=== PATIENT | female | born 1975 | race Caucasian/White ===

== ENCOUNTER 2016-05-19 10:28 | Inpatient (IN) ==
[2016-05-19] MEDS ORDERED: SOLU-MEDROL IV ONE (10:48)
[2016-05-19] MEDS ORDERED: DUONEB (A & A) INH ONE (10:48)
[2016-05-19] MEDS ORDERED: ROBITUSSIN-AC PO ONE (11:46)
--- NOTE | 2016-05-19 11:56 | Diag Imaging Result Document ---
PROCEDURE NAME: CHEST-2 VIEWS - 05/19/2016 FRONTAL AND LATERAL CHEST, TWO VIEWS: FINDINGS: The lungs are well expanded. The heart is not enlarged. The vessels are not distended. No pneumonia. No pleural effusions. IMPRESSION: No acute abnormality.
[2016-05-19 12:01] LABS: MANUAL DIFF NEEDED? NO
[2016-05-19 12:03] LABS: BE 0.7 mmoll (-3.0-3.0); BLOOD TYPE ARTERIAL; DRAW SITE R RADIAL; METHB 0.9 % (0.0-1.5); O2(CT) 18.8 mL/dL (15.0-23.0); PCO2(98.6) 36 mmHg (35-45); PO2(98.6) 65 mmHg (60-100); SAMPLE BLOOD; THB 14.4 g/dL (11.5-17.4); pH(98.6) 7.44 (7.35-7.45)
[2016-05-19 12:06] LABS: MODALITY ROOM AIR
[2016-05-19 12:07] LABS: ALLEN TEST YES
[2016-05-19 12:09] LABS: BASO% 0.2 % (0.0-0.8); EOS# 0.42 X1000 (0.0-0.7); HEMATOCRIT 42.5 % (37.0-47.0); HEMOGLOBIN 14.5 g/dL (12.0-16.0); IMM GRAN# 0.01 X1000 (0.0-0.04); IMM GRAN% 0.1 % (0.0-0.5); LYMPH% 32.3 % (20.5-51.1); MCH 30.5 PG (27-31); MCHC 34.1 g/dL (33-37); MCV 89.3 FL (81-99); MONO# 0.56 X1000 (0.11-0.59); MONO% 6.7 % (1.7-9.3); MPV 11.2 FL (7.4-10.4); NEUT% 55.7 % (42.2-75.2); PLT 206 X1000 (130-400); RBC 4.76 XMIL (4.2-5.4)
[2016-05-19 12:14] LABS: AGAP 13; ALBUMIN 4.1 g/dL (3.5-5.0); ALKALINE PHOSPHATASE 76 U/L (32-104); BUN 8 mg/dL (8-22); CALCIUM 8.8 mg/dL (8.8-10.2); CHLORIDE 99 mmol/L (98-107); COSMO 274; GOT 19 U/L (10-30); GPT 20 U/L (10-36); POTASSIUM 3.2 mmol/L (3.5-5.1); SODIUM 136 mmol/L (136-145); TCO2 25 mmol/L (25-35); TOTAL PROTEIN 7.3 g/dL (6.3-8.3)
[2016-05-19] MEDS ORDERED: XOPENEX NEB INH ONE (14:25)
[2016-05-19] MEDS ORDERED: APRESOLINE IV ONE (14:25)
[2016-05-19] MEDS ORDERED: ZOFRAN IV PRN ×2 (15:04→18:39)
--- NOTE | 2016-05-19 15:08 | PROVIDER DOCUMENTATION ---
This chart was entered by Jamal Arreola Scribe, acting as scribe for Luma Nava PA. HPI-Respiratory General - General Chief Complaint: Shortness of Breath Stated Complaint: SOB/ASTHMA Time Seen by Provider: 05/19/16 10:48 Source: patient Allergies/Adverse Reactions: Patient Allergies Allergy/AdvReac Type Severity Reaction Status Date / Time No Known Allergies Allergy Verified 09/09/12 14:23 Home Medications: Home Medication List Medication Instructions Recorded Confirmed Last Taken Type Ca Cmb No.1/Vit D3/B-6/FA/B12 1 cap PO DAILY 09/09/12 09/11/13 09/03/12 08:00 History [Vitamin D3 1,000 Unit Tablet] Multivitamin/Iron/Folic Acid 1 tab PO DAILY 09/09/12 09/11/13 09/03/12 08:00 History [Centrum Ultra Women's Tablet] [place]-3 Fatty Acids [Fish Oil] 500 mg PO DAILY 09/09/12 09/11/13 09/03/12 08:00 History Omeprazole 40 mg PO DAILY PRN 09/09/12 09/11/13 09/03/12 08:00 History Chlorhexidine Gluconate [Peridex] 15 ml MT BID #0 udc 09/11/12 09/11/13 Unknown Rx Docusate Sodium [Colace] 100 mg PO BID #30 capsule 09/11/12 09/11/13 Unknown Rx Hydrocodone/Acetaminophen [[place] 1 each PO Q4-6H PRN PRN #20 tablet 09/11/13 Unknown Rx 7.5-325 Tablet] Ketorolac [Toradol] 10 mg PO 4XDAY PRN PRN #20 tablet 09/11/13 Unknown Rx Methylprednisolone [Medrol Dosepak] 4 mg PO DIRECTED #1 package 09/11/13 Unknown Rx ROSUVAstatin [Crestor] 10 mg PO DAILY 09/11/13 09/11/13 09/10/13 History 2100 Tramadol [Ultram] 50 mg PO Q6H PRN PRN #20 tablet 09/11/13 Unknown Rx - History of Present Illness-Resp Nature of Presenting Problem: 9 Hour hx of sob, wheezing and feeling flush. Has been outside alot lately assumed it was pollen/allergy related been taking zyrtec with no relief. Tried following up with pcp this am told come to er. Former smoker. Exposed to sick contacts. Quality of Pain: reports: none Severity in ED: reports: moderate Onset/Duration: reports: other (9 hours) Timing: reports: still present Current Respiratory Medication Therapy: Initiated see nurses note Similar Symptoms Previously?: No Recently seen or treated by another doctor?: No Review of Systems - Adult - REVIEW OF SYSTEMS - ADULT Constitutional: denies: chills, fever, fatique Eyes: reports: no symptoms reported Ears, Nose, Mouth & Throat: reports: no symptoms reported Cardiovascular: denies: chest pain, irregular heart rate, orthopnea, syncope Respiratory: reports: shortness of breath, wheezing. denies: hemoptysis, pleurisy Gastrointestinal: reports: no symptoms reported Genitourinary: reports: no symptoms reported Musculoskeletal: reports: no symptoms reported Integumentary: reports: no symptoms reported Neurological: reports: no symptoms reported Psychiatric: reports: no symptoms reported Endocrine: reports: no symptoms reported Hematologic/Lymphatic: reports: no symptoms reported Allergic/Immunologic: reports: no symptoms reported All Other Systems: Reviewed and Negative Past History - Adult - PAST MEDICAL HISTORY-ADULT Review of Records: reports: Nursing Assessment Review, Medications Reviewed Major Childhood Illnesses: reports: denies history Cardiovascular: reports: HTN, hyperlipidemia Respiratory: reports: denies history Gastrointestinal: reports: GERD Obstetrical/Gynecological: reports: denies history Genitourinary: reports: denies history Musculoskeletal: reports: denies history Neurological: reports: denies history Endocrine/Immune: reports: denies history Other Conditions: reports: denies history - PRIOR SURGERIES/PROCEDURES Surgical/Procedure History: reports: appendectomy, cholecystectomy, BTL - PRIOR HOSPITALIZATIONS Prior Hospitalizations: reports: none - IMMUNIZATION STATUS Childhood Immunizations: See Nurse Assessment Flu Vaccine: See Nurse Assessment - FAMILY HISTORY Family History: reviewed, not pertinent - SOCIAL HISTORY Smoking: other (former) Substance Use: none/never Physical Exam-General - PHYSICAL EXAM-ADULT Initial Vital Signs Reviewed: Yes - CONSTITUTIONAL General Appearance: appears well, alert, moderate distress (audible wheezing), obese, anxious - EYES Eyes: PERRL/EOMI, pink conjunctivae - HEAD, EARS, NOSE, MOUTH & THROAT HENMT: normocephalic/atraumatic, moist mucous membranes, normal ENT inspection - NECK Neck: non-tender, full range of motion, supple. negative: lymphadenopathy - RESPIRATORY Respiratory: chest non-tender, respiratory distress, accessory muscle use, wheezing - CARDIOVASCULAR Cardiovascular: regular rate, rhythm, no edema - GASTROINTESTINAL (ABDOMEN) Abdominal Exam: normal bowel sounds, non tender, soft - MUSCULOSKELETAL Back Exam: normal inspection, no CVA tenderness, no vertebral tenderness Extremity: normal gait, normal inspection, no calf tenderness, normal capillary refill Peripheral Pulses: dorsalis-pedis (R): 2+, dorsalis-pedis (L): 2+ - SKIN Integumentary: normal color, normal turgor, warm/dry. negative: rash - NEUROLOGIC Neurologic: grossly normal, no motor/sensory deficits - PSYCHIATRIC Psych/Mental Status: anxious Progress - PLAN OF CARE/RESULTS Progress/Plan/Lab Results: Vital Signs - 8 hr 05/19/16 10:32 05/19/16 10:47 05/19/16 10:50 Temperature 98 F Pulse Rate 102 H 99 H Respiratory Rate 28 H 38 H 36 H Blood Pressure O2 Sat by Pulse Oximetry 95 91 L 05/19/16 12:26 05/19/16 14:22 Temperature Pulse Rate 95 H 93 H Respiratory Rate 23 25 H Blood Pressure 131/88 163/112 O2 Sat by Pulse Oximetry 93 L 93 L Laboratory Results - last 24 hr 05/19/16 05/19/16 05/19/16 11:35 11:35 11:35 WBC 8.37 RBC 4.76 Hgb 14.5 Hct 42.5 MCV 89.3 MCH 30.5 MCHC 34.1 RDW Std Deviation 14.1 Plt Count 206 MPV 11.2 H Immature Gran % (Auto) 0.1 Neut % (Auto) 55.7 Lymph % (Auto) 32.3 [place] % (Auto) 6.7 Eos % (Auto) 5.0 Baso % (Auto) 0.2 Immature Gran # (Auto) 0.01 Neut # (Auto) 4.66 Lymph # (Auto) 2.70 [place] # (Auto) 0.56 Eos # (Auto) 0.42 Baso # (Auto) 0.02 D-Dimer < 0.22 L Specimen Type Sample Site pH pCO2 pO2 HCO3 Base Excess Oxyhemoglobin ABG O2 Sat (Calculated) ABG O2 Saturation ABG Carboxyhemoglobin ABG Methemoglobin Leandro Test A-a O2 Difference Total Hemoglobin Lactate Blood Gas Modality FiO2 % Sodium 136 Potassium 3.2 L Chloride 99 Carbon Dioxide 25 Anion Gap 13 BUN 8 Creatinine 0.7 Estimated GFR/1.73 m2 > 60 BUN/Creatinine Ratio 11 Glucose 157 H Calculated Osmolality 274 Calcium 8.8 Total Bilirubin 0.50 AST 19 ALT 20 Alkaline Phosphatase 76 Total Protein 7.3 Albumin 4.1 Globulin 3.0 Albumin/Globulin Ratio 1.0 05/19/16 11:48 WBC RBC Hgb Hct MCV MCH MCHC RDW Std Deviation Plt Count MPV Immature Gran % (Auto) Neut % (Auto) Lymph % (Auto) [place] % (Auto) Eos % (Auto) Baso % (Auto) Immature Gran # (Auto) Neut # (Auto) Lymph # (Auto) [place] # (Auto) Eos # (Auto) Baso # (Auto) D-Dimer Specimen Type ARTERIAL Sample Site R RADIAL pH 7.44 pCO2 36 pO2 65 HCO3 25.3 Base Excess 0.7 Oxyhemoglobin 92.8 L ABG O2 Sat (Calculated) 18.8 ABG O2 Saturation 96.0 ABG Carboxyhemoglobin 2.30 ABG Methemoglobin 0.9 Leandro Test YES A-a O2 Difference 40.0 Total Hemoglobin 14.4 Lactate 2.30 H Blood Gas Modality ROOM AIR FiO2 % 21.0 Sodium Potassium Chloride Carbon Dioxide Anion Gap BUN Creatinine Estimated GFR/1.73 m2 BUN/Creatinine Ratio Glucose Calculated Osmolality Calcium Total Bilirubin AST ALT Alkaline Phosphatase Total Protein Albumin Globulin Albumin/Globulin Ratio Orders Category Date Time Status CHEST-2 VIEWS [RAD] Stat Exams 05/19/16 11:14 Completed ABG [RESP] Routine Lab 05/19/16 11:48 Completed CBC WITH ELECTRONIC DIFF [HEME] Stat Lab 05/19/16 11:35 Completed COMPREHENSIVE METABOLIC PANEL [CHEM] Stat Lab 05/19/16 11:[address] D-DIMER [address] [COAG] Stat Lab 05/19/16 11:35 Completed Albuterol 2.5MG/Ipratrop 0.5MG [Duoneb (A & A)] Med 05/19/16 10:48 Discontinued 3 ml INH NOW ONE Guaifenesin/Codeine [Robitussin-AC] Med 05/19/16 11:46 Discontinued 10 ml PO NOW ONE Hydralazine [Apresoline] Med 05/19/16 14:25 Discontinued 10 mg IV NOW ONE Levalbuterol Neb [Xopenex Neb] Med 05/19/16 14:25 Discontinued 1.25 mg INH NOW ONE Methylprednisolone Sod Succ [Solu-Medrol] Med 05/19/16 10:48 Discontinued 125 mg IV NOW ONE Aerosol Treatments Routine Oth 05/19/16 10:48 Active Aerosol Treatments Stat Ot 05/19/16 10:48 Active Peak Flow Stat Ot 05/19/16 10:52 Active RT reports peak flow was 30% predicted prior to A&A and was 50% predicted after A&A nebulizer treatment. Result Diagrams: 05/19/16 11:35 05/19/16 11:35 - REASSESSMENT Reassessment #1 Time Reassessed: 11:48 (respiration improved after breathing treatment but had "coughing spell" and now has increased wheezing. States "I just don't feel right " and is receptive to being admitted if needed. ) Status: unchanged - XRAY 1 XRAY Study: Chest Impression: Normal XRAY Interpretation: nad per radiologist - CONSULTS/PCP/HOSPITALIST Notification #1 *Consult/PCP/Hospitalist*: Radames Time Discussed: 15:03 Consult Disposition: Admit Departure - Departure Time of Disposition Decision: 15:03 DIAGNOSIS: Dyspnea Qualifiers: Dyspnea type: shortness of breath Qualified Code(s): R06.02 - Shortness of breath Disposition: ADMITTED INPATIENT 09 Certified Medical Emergency: Emergent Condition: Stable Referrals and Follow-Ups: Spenser Matias MD [Primary Care Provider] - Attestation - Physician/ LISA Attestation Patient care was provided by Advanced Practice Provider:: Yes Advanced Practice Provider:: Luma Nava Advanced Practice Provider documentation review:: The Mid-level provider documentation, treatment plan and medical decision making was reviewed by the physician who agrees with all treatment and medical decision making by the MLP. This chart was documented by the indicated scribe, (Jamal Arreola Scribe) and accurately reflects the services I performed and decisions made by me, Luma Nava PA, as attested by the provider's signature.
[2016-05-19] MEDS: DUONEB (A & A) INH SCH ×3 (15:56→23:29)
[2016-05-19] MEDS: TORADOL IV PRN (17:32)
[2016-05-19] MEDS ORDERED: SALINE LOCK IV FLUID XX ONE (18:37)
[2016-05-19] MEDS ORDERED: DUONEB (A & A) INH PRN (18:39)
[2016-05-19] MEDS ORDERED: NS 1,000 ML ONE (19:01)
[2016-05-19] MEDS: LOVENOX SUBQ SCH (19:10)
[2016-05-19] MEDS: ROCEPHIN 1 GM/NS 1 GM/50 ML IVPB IV SCH (19:11)
[2016-05-19] MEDS: NS 1,000 ML IV SCH (19:11)
[2016-05-19] MEDS: SOLU-MEDROL IV SCH (19:14)
[2016-05-19] MEDS: ROBITUSSIN-AC PO PRN (19:22)
[2016-05-19] MEDS: NORCO-5 PO PRN (19:22)
[2016-05-19] MEDS ORDERED: DUONEB (A & A) INH SCH (19:30)
[2016-05-19] MEDS: DOXYCYCLINE 100 MG in NS 250 ML IV SCH (20:28)
[2016-05-19 22:14] LABS: URINE SOURCE CLEAN CATCH
[2016-05-19 22:27] LABS: BILIRUBIN URINE NEGATIVE (NEGATIVE); BLOOD URINE 2+ (NEGATIVE); CLARITY CLEAR (CLEAR); COLOR YELLOW; LEUKOCYTES URINE NEGATIVE (NEGATIVE); NITRITE URINE NEGATIVE (NEGATIVE); PROTEIN URINE NEGATIVE (NEGATIVE); SP GRAVITY URINE 1.015; URINE MICROSCOPIC NEEDED? YES; UROBILINOGEN URINE NORMAL
[2016-05-19 22:34] LABS: URINE EPITHELIAL CELLS <10 /HPF (<10); URINE RBC <10 /HPF (<10); URINE WBC <10 /HPF (<10)
[2016-05-20] MEDS: NORCO-5 PO PRN ×4 (00:15→20:59)
[2016-05-20] MEDS: SOLU-MEDROL IV SCH ×3 (02:56→18:51)
[2016-05-20] MEDS: ROBITUSSIN-AC PO PRN ×4 (03:01→20:59)
[2016-05-20] MEDS: DUONEB (A & A) INH SCH ×6 (03:37→23:59)
[2016-05-20 06:32] LABS: HEMATOCRIT 42.1 % (37.0-47.0); HEMOGLOBIN 14.1 g/dL (12.0-16.0); MCHC 33.5 g/dL (33-37); MCV 89.6 FL (81-99); MPV 11.4 FL (7.4-10.4); RBC 4.7 XMIL (4.2-5.4)
[2016-05-20 06:47] LABS: AGAP 12; ALBUMIN 4.1 g/dL (3.5-5.0); ALKALINE PHOSPHATASE 69 U/L (32-104); BUN 8 mg/dL (8-22); CALCIUM 9.1 mg/dL (8.8-10.2); CHLORIDE 105 mmol/L (98-107); COSMO 279; GOT 12 U/L (10-30); GPT 20 U/L (10-36); POTASSIUM 3.7 mmol/L (3.5-5.1); SODIUM 139 mmol/L (136-145); TCO2 22 mmol/L (25-35); TOTAL PROTEIN 6.8 g/dL (6.3-8.3)
--- NOTE | 2016-05-20 08:04 | PROGRESS NOTE ---
DATE: 05/20/2016 SUBJECTIVE: The patient notes she is feeling a little bit better this morning. She is having much less wheezing, although still extremely tired, fatigued and short of breath when ambulating from the A-bed to the bathroom. Denies any current chest pains or palpitations. Has a nonproductive cough. PHYSICAL: Vital Signs: Temperature 98, pulse 90, respiratory rate 10, BP 134/75, saturation 97% on 1 L. General: Patient is awake, alert. She is currently in mild respiratory distress, which is an improvement from last night's moderate distress. HEENT: Normocephalic, atraumatic. Neck: Supple. CV: Regular rate. Chest: Positive wheezing diffusely. Much better air movement than last night's exam. Less wheezing. No audible wheezing currently. Abdomen: Soft, morbidly obese. Extremities: Moves all extremities. Neurologic: No changes. LABS: WBCs 13. Otherwise CBC, CMP is normal. ASSESSMENT: 1. Hypokalemia, resolved. 2. Dehydration as noted by moderate ketones, improved. 3. Acute respiratory failure, resolved. PLAN: Will continue patient on her current medications as she is improving. We will check a CT of her chest. Continue doxycycline, breathing treatments, Solu-Medrol and will follow. cc: Brayden Crum MD
[2016-05-20] MEDS: DOXYCYCLINE 100 MG in NS 250 ML IV SCH ×2 (09:17→20:55)
[2016-05-20] MEDS: NS 1,000 ML IV SCH (09:17)
--- NOTE | 2016-05-20 11:30 | Diag Imaging Result Document ---
PROCEDURE NAME: ANGIOGRAM/PULMONARY ARTERIES - 05/20/2016 CT OF THE CHEST WITH INTRAVENOUS CONTRAST: FINDINGS: There are no previous thoracic CT examinations. There is considerable beam hardening artifact. No filling defects are demonstrated in the pulmonary arteries. The aorta is not distended, and there is no evidence of dissection. There are no abnormal fluid collections. There is no evidence of significant adenopathy. The regional skeleton appears to be intact. There is mild dependent atelectasis in both lung bases. Otherwise, there is no evidence of acute pulmonary parenchymal disease. IMPRESSION: No evidence of acute disease.
--- NOTE | 2016-05-20 13:06 | HISTORY AND PHYSICAL ---
PRIMARY CARE PHYSICIAN: Dr. Spenser Matias. CHIEF COMPLAINT: Shortness of breath. HISTORY OF PRESENT ILLNESS: This is a 41-year-old female with a history of COPD who presented to the emergency room after being evaluated by her primary care physician. She is complaining of 9 hours of increasing shortness of breath and wheezing and feeling flushed. In her primary care physician's office she did have room air saturations of 92% while sitting still. They did drop to the 87-88% range on walking therefore, she was sent to the emergency room for evaluation and treatment. On arrival, her room air saturations were 91%. She was placed on nasal cannula and sats came up to 94-95%. Chest x-ray revealed no acute abnormality. PAST MEDICAL HISTORY: Hyperlipidemia, hypertension, COPD. PAST SURGICAL HISTORY: Appendectomy, cholecystectomy, tubal ligation. SOCIAL HISTORY: She denies alcohol, tobacco, or illicit drug use. ALLERGIES: No known drug allergies. HOME MEDICATIONS: Albuterol inhaler, potassium, Lasix 20, phentermine 37.5 daily, Flexeril 10 b.i.d., Protonix 40 with supper. REVIEW OF SYSTEMS: A 14 point review of systems is discussed with the patient with pertinent positives being shortness of breath, increasing cough, wheezing. She denied PND, orthopnea, chest pain, palpitations, dizziness, syncope, productive cough, nausea, vomiting, diarrhea, constipation, black or bloody vomitus black or bloody stools, hematuria, dysuria, frequency, urgency. PHYSICAL EXAMINATION: GENERAL: This is a 41-year-old female who is sitting up in the bed in no distress. VITAL SIGNS: Blood pressure is 155/73 with a heart rate of 106. Respirations are 22. Temperature is 98.4 degrees oral with oxygen saturations of 97-98% on 2 L nasal cannula. CARDIOVASCULAR: Regular rate and rhythm. S1 and S2 appreciated. PULMONARY: She has diffuse wheezes scattered throughout with decreased air movement. GASTROINTESTINAL: Abdomen is soft, nontender, nondistended. Bowel sounds in all 4 quadrants. EXTREMITIES: No clubbing, cyanosis, or edema. Calves are nontender. Pulses are palpable x4. NEUROLOGIC: She is alert and oriented x3. Cranial nerves 2-12 grossly intact. DIAGNOSTICS: Labs, WBC is 8.3 with hemoglobin 14.5, hematocrit 42.5 and platelets of 206,000. D- dimer is less than 0.22. Sodium is 136, potassium 3.2. BUN 8, creatinine 0.7 with a glucose of 157. ABGs on room air pH is 7.4 with a pCO2 of 36, PO2 of 65, and a bicarb of 25.3. Her lactate is 2.3. Chest x-ray revealed no acute processes. ASSESSMENT AND PLAN: 1. Acute respiratory failure. While sitting still in the bed the patient is in no distress but with movement she is in mild respiratory distress. We will continue with her current regimen with supplemental oxygen, DuoNeb q.4 hours and q.2 hours p.r.n. Steroids to taper. 2. Hypokalemia. We will replete and follow. 3. Dehydration as noted by moderate ketones. We will hydrate and follow. 4. Hypertension. We will her follow her vital signs and continue her home medications. Further treatments pending hospital course. Dictated by ANDREAS Perez for Brayden Crum MD cc: ANDREAS Perez MD
[2016-05-20] MEDS: PROTONIX PO SCH (16:57)
[2016-05-20] MEDS: ROCEPHIN 1 GM/NS 1 GM/50 ML IVPB IV SCH (18:50)
[2016-05-20] MEDS: LOVENOX SUBQ SCH (18:51)
[2016-05-21] MEDS: TYLENOL PO PRN ×2 (00:28→12:38)
[2016-05-21] MEDS: TORADOL IV PRN ×3 (00:28→21:04)
[2016-05-21] MEDS: ROBITUSSIN-AC PO PRN ×4 (01:45→21:05)
[2016-05-21] MEDS: NORCO-5 PO PRN ×3 (01:46→16:54)
[2016-05-21] MEDS: SOLU-MEDROL IV SCH ×3 (03:06→18:05)
[2016-05-21] MEDS: DUONEB (A & A) INH SCH ×6 (04:33→23:46)
[2016-05-21] MEDS ORDERED: LASIX IV ONE (08:07)
[2016-05-21] MEDS ORDERED: DOXYCYCLINE 100 MG in NS 250 ML IV SCH (08:07)
[2016-05-21] MEDS ORDERED: NS 1,000 ML IV SCH (08:07)
--- NOTE | 2016-05-21 08:33 | PROGRESS NOTE ---
DATE: 05/21/2016 SUBJECTIVE: Patient notes she is feeling a little bit better. She is still tired, still has difficulty walking to the bathroom. She gets short of breath very easily, but notes that overall she feels better, but nowhere back to her baseline. OBJECTIVE: Vital Signs: On physical, temperature 97, pulse 81, respiratory 19, BP 147/71, satting 99% on room air. General: Patient is awake, alert. She is in mild respiratory distress, but overall she has improved. HEENT: Normocephalic, atraumatic. Neck: Supple. CV: Regular rate. Chest: Decreased breath sounds, but equal bilaterally. Improved from initial admission. Wheezing bilaterally in the lower bases, but improved from initial admission. ASSESSMENT: 1. Acute respiratory failure, improving. Will wean steroids. 2. Hypokalemia, improved. 3. Leukocytosis, improved. 4. Hyperglycemia. 5. Obesity. 6. Hypertension. PLAN: We will continue doxycycline and Rocephin today. We will change the doxycycline to p.o. We will add Lasix p.r.n. x1. We will decrease her steroids to Solu-Medrol 40 q. 8 hours. Hopefully home in the next 1-2 days. cc: Brayden Crum MD
[2016-05-21] MEDS: PROTONIX PO SCH (16:54)
[2016-05-21] MEDS: LOVENOX SUBQ SCH (18:05)
[2016-05-21] MEDS: ROCEPHIN 1 GM/NS 1 GM/50 ML IVPB IV SCH (18:05)
[2016-05-21] MEDS ORDERED: KLOR-CON PO PRN (18:12)
[2016-05-21] MEDS: NORCO-7.5 PO PRN (21:04)
[2016-05-21] MEDS: FLEXERIL PO PRN (21:04)
[2016-05-21] MEDS: DOXYCYCLINE PO SCH (21:04)
[2016-05-22] MEDS: TORADOL IV PRN ×4 (00:54→18:32)
[2016-05-22] MEDS: TYLENOL PO PRN ×2 (00:54→14:04)
[2016-05-22] MEDS: ROBITUSSIN-AC PO PRN ×4 (00:55→18:32)
[2016-05-22] MEDS: SOLU-MEDROL IV SCH ×2 (02:48→13:54)
[2016-05-22] MEDS: DUONEB (A & A) INH SCH ×6 (03:45→22:58)
[2016-05-22 07:00] LABS: HEMATOCRIT 38.6 % (37.0-47.0); HEMOGLOBIN 12.6 g/dL (12.0-16.0); MCH 29.8 PG (27-31); MCHC 32.6 g/dL (33-37); MCV 91.3 FL (81-99); MPV 11.7 FL (7.4-10.4); RBC 4.23 XMIL (4.2-5.4)
[2016-05-22 07:21] LABS: AGAP 13; ALBUMIN 3.7 g/dL (3.5-5.0); ALKALINE PHOSPHATASE 58 U/L (32-104); BUN 13 mg/dL (8-22); CALCIUM 8.6 mg/dL (8.8-10.2); CHLORIDE 101 mmol/L (98-107); COSMO 278; GOT 22 U/L (10-30); GPT 35 U/L (10-36); MAGNESIUM 1.8 mg/dL (1.5-2.7); POTASSIUM 3.5 mmol/L (3.5-5.1); SODIUM 138 mmol/L (136-145); TCO2 25 mmol/L (25-35); TOTAL PROTEIN 6.4 g/dL (6.3-8.3)
[2016-05-22] MEDS: DOXYCYCLINE PO SCH ×2 (08:28→19:58)
--- NOTE | 2016-05-22 09:23 | PROGRESS NOTE ---
DATE: 05/22/2016 SUBJECTIVE: The patient notes that she is doing okay. She had an episode last night where her heart rate jumped up to 110, 120 after she attempted to walk to the restroom and back. After that, however, she started feeling better. OBJECTIVE: Vital Signs: On physical, temperature 98.0 degrees, pulse 98-103, respiratory rate 20, BP 155/80, satting 98% on 1 L. General: Patient is an obese female who is currently in mild respiratory distress, which is improved from her moderate to severe upon initial admission the hospital. HEENT: Normocephalic, atraumatic. KEVIN. Neck: Supple. CV: Regular rate. Chest: Relatively clear. Abdomen: Soft. Extremities: Moves all extremities. Neurologic: No focal changes. Skin: Warm and dry. No rashes. ASSESSMENT: 1. Asthma exacerbation. 2. Hypoxemia, improved. 3. Supraventricular tachycardia. 4. Obesity. PLAN: Will continue patient on doxycycline, albuterol neb treatments. We will decrease her Solu- Medrol to 40 q. 12 hours. We will continue to follow. Hopefully can discharge home within the next day or two. We will add low-dose Coreg for her supraventricular tachycardia and her elevated blood pressure. We will continue to watch her asthma as she is inducted on Coreg. cc: Brayden Crum MD
[2016-05-22] MEDS: COREG PO SCH ×2 (09:51→21:11)
[2016-05-22] MEDS: NORCO-7.5 PO PRN ×2 (09:52→20:03)
[2016-05-22] MEDS: LASIX PO PRN (14:04)
[2016-05-22] MEDS: PROTONIX PO SCH (17:17)
[2016-05-22] MEDS: ROCEPHIN 1 GM/NS 1 GM/50 ML IVPB IV SCH (18:32)
[2016-05-22] MEDS: LOVENOX SUBQ SCH (18:32)
[2016-05-22] MEDS: FLEXERIL PO PRN (20:03)
[2016-05-23] MEDS: SOLU-MEDROL IV SCH ×2 (01:14→13:16)
[2016-05-23] MEDS: TORADOL IV PRN ×3 (01:19→10:51)
[2016-05-23] MEDS: ROBITUSSIN-AC PO PRN ×3 (01:19→10:58)
[2016-05-23] MEDS: TYLENOL PO PRN ×2 (01:19→06:54)
[2016-05-23] MEDS: DUONEB (A & A) INH SCH ×3 (03:19→11:31)
[2016-05-23] MEDS: COREG PO SCH (08:29)
[2016-05-23] MEDS: LASIX PO PRN (08:30)
[2016-05-23] MEDS: NORCO-7.5 PO PRN (08:30)
[2016-05-23] MEDS: DOXYCYCLINE PO SCH (08:30)
--- NOTE | 2016-05-23 11:28 | Diag Imaging Result Document ---
PROCEDURE NAME: SHOULDER-RIGHT - 05/22/2016 X-RAY RIGHT SHOULDER, TWO VIEWS: COMPARISON: None. FINDINGS: Bones are intact and normally aligned. Joint spaces and soft tissues are clear. IMPRESSION: Negative exam.
[2016-05-23 12:10] VITALS: BP 160/87
[2016-05-23] MEDS ORDERED: PNEUMOVAX 23 IM ONE (12:43)
--- NOTE | 2016-05-25 10:59 | DISCHARGE SUMMARY ---
ADMISSION DATE: 05/19/2016 DISCHARGE DATE: 05/23/2016 PRIMARY CARE PHYSICIAN: Dr. Spenser Matias. DIAGNOSES: 1. Acute respiratory failure. 2. Hypoxemia improved. 3. Supraventricular tachycardia resolved. 4. Asthma exacerbation. 5. Obesity. DIAGNOSTICS: 05/19/2016 chest x-ray with the lungs are well expanded. Heart is not enlarged. Vessels are not distended. No pneumonia and no pleural effusions. Pulmonary arteriogram 05/20/2016, no evidence of acute disease. 05/22/2016 shoulder x-ray, bones are intact and normally aligned. Joint spaces and soft tissues are clear. Negative exam. MICROBIOLOGY: Blood cultures x2 no growth after 48 hours. Sputum culture reveals normal frannie. HOSPITAL COURSE: Ms. Duke presented to the emergency room complaining of 9 hours of increasing shortness of breath, wheezing and feeling flushed. She had oxygen saturations of 87-88% walking with saturations of 92% while sitting on room air while at her primary care physician's office. She was found to have a COPD exacerbation. She was started with DuoNeb q.4, 2 p.r.n., steroid taper, supplemental oxygen and pulmonary toilet which she did. She did progress. She states today she is back to her normal health. We did follow electrolytes and replete as appropriate. While in the hospital, Ms. Duke had an episode of SVT which did resolve on its own. She has been instructed not to take her diet medication until she is evaluated by her primary care physician and gets further instructions from him. DISCHARGE PHYSICAL EXAMINATION: Cardiovascular: Regular rate and rhythm. S1, S2 appreciated. Pulmonary: Breath sounds are diminished throughout with no increased work of breathing noted. Gastrointestinal: Abdomen is soft, nontender, nondistended. Bowel sounds in all 4 quadrants. Extremities: No clubbing, cyanosis, or edema. Pulses are palpable x4. Discharge Vital Signs: Blood pressure is 140/90 with a heart rate of 70 to 80s, respirations are 18, temperature is 98.1 degrees, 97-98% on room air. DISCHARGE MEDICATIONS: [place]lor-Con 10 p.r.n. Lasix 20 mg daily. Flexeril 10 b.i.d. Protonix 40 with supper. [place] 7.5/325 b.i.d. p.r.n. Coreg 6.25 every 12 hours. ProAir inhaler b.i.d. DuoNeb as directed. Doxycycline 100 mg p.o. q.12 hours. Robitussin AC 10 mL q.4-6 hours p.r.n. DISCHARGE ACTIVITY: As tolerated. DISCHARGE DIET: Regular. FOLLOWUP: She needs to follow up with her primary care physician in 1-2 weeks. At this time they can discuss her restarting her diet medications after having an episode of SVT. She is being discharged home in stable condition with family members. TIME SPENT: This is a greater than 30 minutes discharge. Dictated by ANDREAS Perez for Brayden Crum MD cc: ANDREAS Perez MD
== END 2016-05-23 13:30 | disposition home or self-care (01) ==
LOC: P.MEDSURG 10:28 → P.ED 10:28 → OBSVTOIN 15:47 → SUATTDRO 15:47
PROVIDERS: ATTEND Family Medicine